=== PATIENT | male | born 2000 | race Caucasian/White ===

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

== ENCOUNTER 2019-01-03 11:31 | Emergency (ER) | payer OTHER ==
--- NOTE | 2019-01-03 12:32 | UC ---
Laceration HPI - HPI Summary HPI Summary: Patient is a 18-year-old male here with a finger laceration. Patient was cutting marshals with a sharp knife yesterday when he cut the tip of his left third finger. It occurred yesterday patient apply triple antibiotic and stopped the bleeding. Patient went to his primary care doctor who dressed his wound and told him to come here to get "foam" to act as skin. Patient has no active bleeding. Patient is up to his vaccines. - History Of Current Complaint Stated Complaint: FINGER LAC Time Seen by Provider: 01/03/19 12:26 Hx Obtained From: Patient Laceration Location: Finger Mechanism Of Injury: Sharp Trauma - Allergies/Home Medications Allergies/Adverse Reactions: Allergies Allergy/AdvReac Type Severity Reaction Status Date / Time No Known Allergies Allergy Unverified 11/01/13 15:03 PMH/Surg Hx/FS Hx/Imm Hx Previously Healthy: Yes - Surgical History Surgical History: None Surgery Procedure, Year, and Place: ear repai - Family History Known Family History: Positive: None Family History: no cardiovascular issues in family lineage - Social History Alcohol Use: None Substance Use Type: None Smoking Status (MU): Never Smoked Tobacco Review of Systems All Other Systems Reviewed And Are Negative: Yes Physical Exam - Summary Physical Exam Summary: Vital Signs Reviewed: Yes A+Ox3, no distress Eyes: Conjunctiva Clear ENT: Hearing grossly normal neck: supple Respiratory: Positive: No respiratory distress, No accessory muscle use Cardiovascular: skin color reflect adequate perfusion Musculoskeletal Exam: HOOPER x 4 without difficulty Neurological: Positive: Alert, ambulatory without difficulty Skin: Left middle finger with small area of skin cut off through the distal portion of the nail. No active bleeding. Full range of motion in all joints. Triage Information Reviewed: Yes Laceration Course/Dx - Course/Dx Course Of Treatment: Patient is here with a small laceration through his left middle finger that occurred yesterday. Patient had a dressing on prior to coming in from his primary care doctor. Patient has no active bleeding and does not need anything here at the urgent care. Patient is up-to-date on his vaccines. - Differential Dx - Laceration/Wound Differental Diagnoses: Abrasion, Avulsion, Foreign Body, Laceration, Tendon Laceration - Diagnosis Provider Diagnosis: Finger laceration Discharge - Sign-Out/Discharge Documenting (check all that apply): Post-Discharge Follow Up All imaging exams completed and their final reports reviewed: No Studies - Discharge Plan Condition: Stable Disposition: HOME Patient Education Materials: Finger Laceration (ED) Referrals: Lauryn Phillips MD [Primary Care Provider] - Additional Instructions: Your finger will heal in the next 7-10 days Please keep your finger covered with triple antibiotic ointment and gauze Please do not put your finger and any dirty water including legs, streams, pools - Billing Disposition and Condition Condition: STABLE Disposition: Home
[2019-01-03 12:46] VITALS: BP 138/58
== END 2019-01-03 12:50 | disposition home or self-care (01) ==
LOC: UCEAST 11:31
DX: S61.213A Laceration without foreign body of left middle finger without damage to nail, initial encounter (principal); W26.0XXA Contact with knife, initial encounter; Y92.9 Unspecified place or not applicable
CPT/HCPCS: 99202; G0463